=== PATIENT | male | born 1965 | race African-American/Black ===

== ENCOUNTER 2020-04-01 17:02 | Emergency (ER) | payer OTHER ==
[~2020-04-01] VITALS: Ht 182.9 cm; Wt 111.1 kg
[2020-04-01 17:08] VITALS: BP_SYST 149
--- NOTE | 2020-04-01 17:12 | NUR ---
AMBULATED TO BED 2
--- NOTE | 2020-04-01 17:15 | NUR ---
Pt walked in to ER with c/o neck pain off and on for the last couple months and increasing today while at work. Pain is 6/10. V/S stable, pt is afebrile. Currently resting in bed, will continue to monitor.
--- NOTE | 2020-04-01 17:25 | NUR ---
ER Dr. English at bedside examining patient.
[2020-04-01] MEDS ORDERED: KETOROLAC TROMETHAMINE 30 MG VIAL IVP ONE (17:30)
[2020-04-01] MEDS ORDERED: ASPIRIN 81 MG TAB.CHEW PO ONE (17:30)
[2020-04-01] MEDS ORDERED: NACL 0.9% 1,000 ML IV ONE (17:30)
--- NOTE | 2020-04-01 17:32 | NUR ---
Patient transported to radiology via wheelchair, accompanied by staff.
[2020-04-01] MEDS ORDERED: ASPIRIN 81 MG TAB.CHEW ONE (17:34)
--- NOTE | 2020-04-01 17:45 | NUR ---
Pt refused IV placement, NS and IV toradol. Dr. English aware
--- NOTE | 2020-04-01 17:52 | NUR ---
Lab at bedside for blood draw.
[2020-04-01 18:10] LABS: BASOPHILS % (AUTO) 0.6 % (0.0-2.0); EOSINOPHILS # (AUTO) 0.2 K/uL (0.0-0.4); EOSINOPHILS % (AUTO) 2.2 % (0.0-4.0); HEMATOCRIT 39.3 % (36-54); HEMOGLOBIN 13.4 g/dL (14.0-18.0); LYMPHOCYTES # (AUTO) 3.1 K/uL (1.0-5.5); LYMPHOCYTES % (AUTO) 41.9 % (20.5-51.5); MEAN CORPUSCULAR HEMOGLOBIN 31 pg (27-31); MEAN CORPUSCULAR HGB CONC 34 % (32-36); MEAN CORPUSCULAR VOLUME 90 fL (79.0-98.0); MONOCYTES # (AUTO) 0.5 K/uL (0.0-1.0); MONOCYTES % (AUTO) 6.2 % (1.7-9.3); NEUTROPHILS # (AUTO) 3.7 K/uL (1.8-7.7); NEUTROPHILS % (AUTO) 49.1 % (40.0-70.0); PLATELET COUNT (AUTO) 206 K/uL (130-430); RED BLOOD CELL COUNT(AUTO) 4.36 MIL/uL (4.2-6.2); RED CELL DISTRIBUTION WIDTH 14.6 % (9.0-15.0); WHITE BLOOD COUNT (AUTO) 7.5 K/uL (4.8-10.8)
[2020-04-01 18:18] LABS: ANION GAP 4 (5-15); CALCIUM 9.1 mg/dL (8.4-11.0); CHLORIDE 102 mmol/L (98-107); CREATININE 1.25 mg/dL (0.55-1.30); GLUCOSE 92 mg/dL (70-99); POTASSIUM 3.2 mmol/L (3.5-5.1); SODIUM SERUM 137 mmol/L (136-145); UREA NITROGEN, BLOOD 15 mg/dL (8-21)
[2020-04-01 18:27] LABS: ALANINE AMINOTRANSFERASE 46 U/L (12-78); ALBUMIN 4.2 g/dL (3.4-4.8); ASPARTATE AMINOTRANSFERASE 24 U/L (10-37); TOTAL BILIRUBIN 0.7 mg/dL (0.0-1.0)
[2020-04-01 18:30] LABS: GFR AFRICAN AMERICAN 77 mL/min (>90)
[2020-04-01 19:15] VITALS: BP_SYST 149
--- NOTE | 2020-04-01 19:16 | NUR ---
Patient given written and verbal discharge instructions and verbalizes understanding. ER MD discussed with patient the results and treatment provided. Patient in stable condition. ID arm band removed. Rx of Motrin given. Patient educated on pain management and to follow up with PMD. Pain Scale 0. Opportunity for questions provided and answered. Medication side effect fact sheet provided.
== END 2020-04-01 19:15 | disposition home or self-care (01) ==
LOC: SED 17:02
DX: S16.1XXA Strain of muscle, fascia and tendon at neck level, initial encounter (principal); R03.0 Elevated blood-pressure reading, without diagnosis of hypertension; E78.00 Pure hypercholesterolemia, unspecified; X50.3XXA Overexertion from repetitive movements, initial encounter; Y93.89 Activity, other specified; Y92.89 Other specified places as the place of occurrence of the external cause; Y99.8 Other external cause status
CPT/HCPCS: 36415; 71045; 72040-TC; 80053; 84484; 85025; 93005; 99285; J1885

== ENCOUNTER 2020-06-04 23:56 | Emergency (ER) | payer OTHER ==
[~2020-06-04] VITALS: Ht 180.3 cm; Wt 97.5 kg
--- NOTE | 2020-06-05 00:13 | NUR ---
Patient to ER bed 3 to gown for evaluation. Side rails up. Report given to Amaris CARTER.
[2020-06-05 00:14] VITALS: BP_SYST 137
--- NOTE | 2020-06-05 00:20 | NUR ---
ER at bedside examining patient.
[2020-06-05] MEDS ORDERED: NACL 0.9% 1,000 ML IV ONE (00:30)
[2020-06-05 00:55] LABS: BILIRUBIN,URINE NEGATIVE (NEGATIVE); BLOOD, URINE NEGATIVE (NEGATIVE); CLARITY/URINE CLEAR (CLEAR); COLOR,URINE YELLOW (YELLOW); GLUCOSE,URINE NEGATIVE (NEGATIVE); KETONES,URINE NEGATIVE (NEGATIVE); LEUKOCYTE ESTERASE ,URINE NEGATIVE (NEGATIVE); NITRITE, URINE NEGATIVE (NEGATIVE); PH,URINE 6.5 (5.0-8.0); PROTEIN URINE NEGATIVE (NEGATIVE); UROBILINOGEN,URINE 0.2 (0.2-1.0)
[2020-06-05 01:16] LABS: BASOPHILS # (AUTO) 0.1 K/uL (0.0-0.2); BASOPHILS % (AUTO) 1.6 % (0.0-2.0); EOSINOPHILS # (AUTO) 0.3 K/uL (0.0-0.4); HEMATOCRIT 38.5 % (36-54); HEMOGLOBIN 12.7 g/dL (14.0-18.0); LYMPHOCYTES # (AUTO) 4.3 K/uL (1.0-5.5); LYMPHOCYTES % (AUTO) 49.8 % (20.5-51.5); MEAN CORPUSCULAR HEMOGLOBIN 30 pg (27-31); MEAN CORPUSCULAR HGB CONC 33 % (32-36); MEAN CORPUSCULAR VOLUME 91 fL (79.0-98.0); MONOCYTES # (AUTO) 0.7 K/uL (0.0-1.0); MONOCYTES % (AUTO) 8.2 % (1.7-9.3); NEUTROPHILS # (AUTO) 3.2 K/uL (1.8-7.7); NEUTROPHILS % (AUTO) 37.4 % (40.0-70.0); PLATELET COUNT (AUTO) 256 K/uL (130-430); RED BLOOD CELL COUNT(AUTO) 4.25 MIL/uL (4.2-6.2); RED CELL DISTRIBUTION WIDTH 14.4 % (9.0-15.0); WHITE BLOOD COUNT (AUTO) 8.7 K/uL (4.8-10.8)
[2020-06-05] MEDS ORDERED: KETOROLAC TROMETHAMINE 30 MG VIAL ONE (01:21)
[2020-06-05 01:25] LABS: CALCIUM 9.1 mg/dL (8.4-11.0); CREATININE 1.22 mg/dL (0.55-1.30); POTASSIUM 3.9 mmol/L (3.5-5.1)
[2020-06-05] MEDS ORDERED: KETOROLAC TROMETHAMINE 30 MG VIAL IVP ONE (01:30)
[2020-06-05 01:31] LABS: TOTAL BILIRUBIN 0.6 mg/dL (0.0-1.0)
--- NOTE | 2020-06-05 01:39 | NUR ---
Pt taken to US, ambulatory.
--- NOTE | 2020-06-05 01:45 | NUR ---
Pt returned from ambulatory.
--- NOTE | 2020-06-05 02:17 | NUR ---
Pt taken to CT scan via wheelchair.
--- NOTE | 2020-06-05 02:35 | NUR ---
Pt returned from CT scan.
[2020-06-05 04:15] VITALS: BP_SYST 110
--- NOTE | 2020-06-05 04:15 | NUR ---
Patient given written and verbal discharge instructions and verbalizes understanding. ER MD discussed with patient the results and treatment provided. Patient in stable condition. ID arm band removed. IV catheter removed intact and dressing applied, no active bleeding. Rx of ibuprofen and norcos given. Patient educated on pain management and to follow up with PMD. Opportunity for questions provided and answered. Medication side effect fact sheet provided.
== END 2020-06-05 04:15 | disposition home or self-care (01) ==
LOC: SED 23:56
DX: R10.11 Right upper quadrant pain (principal); E78.00 Pure hypercholesterolemia, unspecified; E78.5 Hyperlipidemia, unspecified
CPT/HCPCS: 36415; 74176; 76376; 76700; 80053; 81003; 83690; 85025; 96361; 96374; 99285; J1885; J7030

== ENCOUNTER 2023-04-13 03:23 | Inpatient (IN) | payer OTHER ==
[~2023-04-13] VITALS: Ht 180.3 cm; Wt 103.4 kg
[2023-04-13] MEDS ORDERED: CYCLOBENZAPRINE HCL 10 MG TABLET (FLEXERIL) PO ONE (03:45)
[2023-04-13] MEDS ORDERED: OXYCODONE/ACETAMINOPHEN *10*mg/325 mg TABLET PO ONE (03:45)
[2023-04-13] MEDS ORDERED: KETOROLAC TROMETHAMINE 30 MG VIAL IM ONE (03:45)
[2023-04-13] MEDS: LIDOCAINE PATCH 5% 1 EA TP SCH ×2 (04:06→08:55)
[2023-04-13 04:16] VITALS: BP_SYST 132; PULSE 95; RESP 20; TEMP 98.3; O2SAT 97
[2023-04-13] MEDS ORDERED: DIAZEPAM 5 MG TABLET (VALIUM) PO ONE (05:00)
[2023-04-13] MEDS ORDERED: HYDROcodone/ACETAMIN 5-325 MG TAB (NORCO/ VICODIN) PO PRN ×3 (08:45→11:00)
[2023-04-13] MEDS ORDERED: ACETAMINOPHEN 325 MG TABLET PO PRN (08:45)
[2023-04-13] MEDS ORDERED: LORazepam 2 MG/ML VIAL IVP PRN (11:00)
[2023-04-13] MEDS ORDERED: NALOXONE HCL 0.4 MG/ML AMP (NARCAN) IVP PRN (11:00)
[2023-04-13] MEDS ORDERED: OXYCODONE/ACETAMINOPHEN 5-325 TABLET PO PRN (11:00)
[2023-04-13] MEDS ORDERED: ONDANSETRON HCL 4 MG/2 ML VIAL IVP PRN (11:00)
[2023-04-13 11:18] LABS: BASOPHILS % (AUTO) 0.5 % (0.0-2.0); EOSINOPHILS % (AUTO) 0.3 % (0.0-4.0); HEMATOCRIT 39.4 % (36-54); HEMOGLOBIN 12.8 g/dL (14.0-18.0); LYMPHOCYTES # (AUTO) 1.6 K/uL (1.0-5.5); LYMPHOCYTES % (AUTO) 20.3 % (20.5-51.5); MEAN CORPUSCULAR HEMOGLOBIN 29 pg (27-31); MEAN CORPUSCULAR HGB CONC 32 % (32-36); MEAN CORPUSCULAR VOLUME 89 fL (79.0-98.0); MONOCYTES # (AUTO) 0.8 K/uL (0.0-1.0); MONOCYTES % (AUTO) 9.8 % (1.7-9.3); NEUTROPHILS # (AUTO) 5.6 K/uL (1.8-7.7); NEUTROPHILS % (AUTO) 69.1 % (40.0-70.0); PLATELET COUNT (AUTO) 188 K/uL (130-430); RED BLOOD CELL COUNT(AUTO) 4.44 MIL/uL (4.2-6.2); RED CELL DISTRIBUTION WIDTH 14.5 % (9.0-15.0); WHITE BLOOD COUNT (AUTO) 8.1 K/uL (4.8-10.8)
[2023-04-13 11:40] LABS: ALBUMIN 3.5 g/dL (3.4-4.8); CALCIUM 9.7 mg/dL (8.4-11.0); CREATININE 1.49 mg/dL (0.55-1.30); POTASSIUM 3.7 mmol/L (3.5-5.1); TOTAL BILIRUBIN 0.7 mg/dL (0.0-1.0); TOTAL PROTEIN, SERUM 7.7 g/dL (6.4-8.3)
[2023-04-13] MEDS: NACL 0.9% 1,000 ML IV SCH (13:30)
[2023-04-13] MEDS: KETOROLAC TROMETHAMINE 30 MG VIAL IVP PRN (14:35)
[2023-04-13] MEDS: BACLOFEN 10 MG TABLET PO SCH ×2 (15:25→21:14)
[2023-04-13] MEDS: IBUPROFEN 800 MG TABLET PO SCH ×2 (15:40→21:15)
[2023-04-13 16:29] LABS: BILIRUBIN,URINE NEGATIVE (NEGATIVE); BLOOD, URINE 1+ (NEGATIVE); CLARITY/URINE CLEAR (CLEAR); COLOR,URINE YELLOW (YELLOW); GLUCOSE,URINE NEGATIVE (NEGATIVE); KETONES,URINE NEGATIVE (NEGATIVE); LEUKOCYTE ESTERASE ,URINE NEGATIVE (NEGATIVE); NITRITE, URINE NEGATIVE (NEGATIVE); PH,URINE 5.5 (5.0-8.0); PROTEIN URINE NEGATIVE (NEGATIVE); UROBILINOGEN,URINE 0.2 (0.2-1.0)
[2023-04-13 17:37] LABS: BACTERIA,URINE None Seen /HPF (None Seen)
[2023-04-13 20:00] VITALS: BP_SYST 101; PULSE 90; RESP 18; TEMP 98.4; O2SAT 93; O2SAT 98
[2023-04-13 22:30] LABS: CHLORIDE,URINE RANDOM 139 mmol/L (55-125)
[2023-04-14] MEDS: NACL 0.9% 1,000 ML IV SCH (02:13)
[2023-04-14 05:29] LABS: BASOPHILS % (AUTO) 0.4 % (0.0-2.0); EOSINOPHILS # (AUTO) 0.1 K/uL (0.0-0.4); HEMATOCRIT 39.3 % (36-54); HEMOGLOBIN 12.9 g/dL (14.0-18.0); LYMPHOCYTES # (AUTO) 1.5 K/uL (1.0-5.5); MEAN CORPUSCULAR HEMOGLOBIN 29 pg (27-31); MEAN CORPUSCULAR HGB CONC 33 % (32-36); MEAN CORPUSCULAR VOLUME 89 fL (79.0-98.0); MONOCYTES # (AUTO) 1.1 K/uL (0.0-1.0); MONOCYTES % (AUTO) 10.8 % (1.7-9.3); NEUTROPHILS # (AUTO) 7.5 K/uL (1.8-7.7); NEUTROPHILS % (AUTO) 72.8 % (40.0-70.0); PLATELET COUNT (AUTO) 171 K/uL (130-430); RED CELL DISTRIBUTION WIDTH 14.5 % (9.0-15.0); WHITE BLOOD COUNT (AUTO) 10.3 K/uL (4.8-10.8)
[2023-04-14] MEDS: KETOROLAC TROMETHAMINE 30 MG VIAL IVP PRN ×2 (05:40→12:49)
[2023-04-14 05:53] LABS: CREATININE 1.11 mg/dL (0.55-1.30); POTASSIUM 3.6 mmol/L (3.5-5.1)
[2023-04-14 08:06] VITALS: BP_SYST 116; PULSE 95; RESP 16; TEMP 99.7; O2SAT 98
[2023-04-14] MEDS: IBUPROFEN 800 MG TABLET PO SCH ×2 (08:21→15:00)
[2023-04-14] MEDS: BACLOFEN 10 MG TABLET PO SCH ×2 (08:22→15:00)
[2023-04-14 08:24] VITALS: O2SAT 98
[2023-04-14] MEDS ORDERED: BACL10TA PO (10:20)
[2023-04-14] MEDS ORDERED: IBUP-1970 PO (10:20)
[2023-04-14] MEDS ORDERED: LIDO1ADH71 TP (10:20)
[2023-04-14 11:09] VITALS: BP_SYST 106; PULSE 95; RESP 16; TEMP 98.9; O2SAT 99
[2023-04-14] MEDS ORDERED: NORMAL SALINE 5 ML DISP.SYRIN IVF SCH (14:00)
[2023-04-14] MEDS ORDERED: guaiFENesin/DEXTROMETHORPHAN 10 ML UDC PO PRN (14:00)
[2023-04-14 15:50] VITALS: BP_SYST 110; PULSE 92; RESP 18; TEMP 98.7; O2SAT 99
[2023-04-14 16:00] VITALS: BP_SYST 109; PULSE 91; RESP 16; TEMP 97.3; O2SAT 99
== END 2023-04-14 17:10 | disposition home health service (06) | DRG 552 ==
LOC: SED 03:23 → SMU 06:26
PROVIDERS: ADMIT Preventive Medicine Preventive Medicine/Occupational Environmental Medicine; ATTEND Preventive Medicine Preventive Medicine/Occupational Environmental Medicine
DX: M54.16 Radiculopathy, lumbar region (principal); N17.9 Acute kidney failure, unspecified; E78.5 Hyperlipidemia, unspecified; M54.30 Sciatica, unspecified side; M47.816 Spondylosis without myelopathy or radiculopathy, lumbar region
CPT/HCPCS: 36415; 72131; 76376; 76770; 80048; 80053; 81000; 81001; 81015; 82435; 82570; 84302; 85025; 96372; 97110-GP; 97116-GP; 97530-GP; 99285; J1885; J2060

== ENCOUNTER 2023-04-16 17:31 | Emergency (ER) | payer OTHER ==
[~2023-04-16] VITALS: Ht 180.3 cm; Wt 113.4 kg
[~2023-04-16 17:31] MED LIST: BACL10TA PO; IBUP-1970 PO; LIDO1ADH71 TP
[2023-04-16 18:15] VITALS: BP_SYST 116; PULSE 93; RESP 20; TEMP 98; O2SAT 99
[2023-04-16] MEDS ORDERED: ONDANSETRON 4 MG ODT TAB PO ONE (18:30)
[2023-04-16] MEDS ORDERED: MORPHINE 4 MG INJ. 4 MG/ML VIAL IM ONE (18:30)
[2023-04-16] MEDS ORDERED: OXYC-128 PO (20:23)
[2023-04-16] MEDS ORDERED: LIDOINT TP (20:23)
[2023-04-16 20:31] LABS: BILIRUBIN,URINE NEGATIVE (NEGATIVE); BLOOD, URINE 2+ (NEGATIVE); COLOR,URINE YELLOW (YELLOW); GLUCOSE,URINE NEGATIVE (NEGATIVE); KETONES,URINE 2+ (NEGATIVE); LEUKOCYTE ESTERASE ,URINE NEGATIVE (NEGATIVE); NITRITE, URINE NEGATIVE (NEGATIVE); PROTEIN URINE 1+ (NEGATIVE)
[2023-04-16 20:42] LABS: CLARITY/URINE SLIGHTLY CLOUDY (CLEAR)
[2023-04-16] MEDS ORDERED: DOCU-144 PO (21:15)
[2023-04-16] MEDS ORDERED: POLY17PO4 PO (21:15)
[2023-04-16] MEDS ORDERED: KETOROLAC TROMETHAMINE 15 MG VIAL IM ONE (21:15)
[2023-04-16 21:39] LABS: BACTERIA,URINE FEW /HPF (None Seen)
[2023-04-16 21:52] VITALS: BP_SYST 140; PULSE 80; RESP 20; TEMP 97.1; O2SAT 96
== END 2023-04-16 21:52 | disposition home or self-care (01) ==
LOC: SED 17:31
DX: M54.50 Low back pain, unspecified (principal); E78.00 Pure hypercholesterolemia, unspecified; Z79.899 Other long term (current) drug therapy
CPT/HCPCS: 99284; 81001; 74018; 96372; Q0162; J1885; J2270; 81000; 81015